=== PATIENT | female | born 1995 | race Hispanic/Latino ===

== ENCOUNTER 2016-08-11 20:03 | Emergency (ER) | payer OTHER ==
[~2016-08-11] VITALS: Ht 154.9 cm; Wt 80.7 kg
[~2016-08-11 20:03] MED LIST: AFRIN30 ML IN; AUGMENTIN 875-1 EACH PO; BACTRIM DS TAB1 EACH PO; CITRATE OF MAG300 ML PO; COLACE100 M1 PO; GOLYTELY SOLU4000 ML PO; IBUPROFEN800 M1 PO; MAGNESIUM CITR296 ML PO; POLYTRIM EYE DR10 ML OPH; TESSALON PERLE100 M1 PO
[2016-08-11 22:32] VITALS: BP 117/53
--- NOTE | 2016-08-11 22:49 | ED SKIN/ALLERGY COMPLAINT ---
History of Present Illness General Chief Complaint: Skin Rash/ Abcess Stated Complaint: RASH Source: patient Exam Limitations: no limitations Allergies Coded Allergies: No Known Allergies (03/17/16) Reconcile Medications Amoxicillin/Potassium Clav (Augmentin 875-125 Tablet) 875 MG-125 MG TABLET 1 TAB PO BID SINUSITIS Benzonatate (Tessalon Perle) 100 MG CAPSULE 1 CAP PO TID PRN COUGH Ibuprofen 800 MG TABLET 1 TAB PO TID PRN BODY ACHES Oxymetazoline HCl (Afrin) 0.05 % SPRAY 1 SPRAY IN TID PRN SINUS CONGESTION MAXIUMUM OF 3 DAYS Sulfamethoxazole/Trimethoprim (Bactrim Ds Tablet) 800 MG-160 MG TABLET 1 TAB PO BID uti Triage Note: PT IS 10 WEKS PT TO ED C/O ITCHY RASH TO UPPER CHEST, GOING UP NECK. STARTED 3 WEEKS AGO. NO NEW FOODS, LOTIONS OR DETERGEANTS. NO PAIN. NO COMPLAINTS R/T Triage Nurses Notes Reviewed? yes : Yes Patient currently breastfeeds: No HPI: This patient is a 21-year-old female who is approximately 10 weeks gestation who presented to the emergency department today for evaluation of rash. The patient reported that she has had this itchy rash for approximately 3 weeks. She reported that it is on the front of her chest and her neck. She denied any sore throat, fevers, chills, difficulty breathing, chest pain, back pain. She denied any leakage of vaginal fluid, vaginal discharge, abdominal pain or cramping, nausea, vomiting, or any other associated symptoms. (PRABHU GIBBS,CELENA) Vital Signs & Intake/Output Vital Signs & Intake/Output Vital Signs Date Time Temp Pulse Resp B/P B/P Pulse O2 O2 Flow FiO2 Mean Ox Delivery Rate 08/12 2303 96 Room Air 08/12 2231 99.0 77 16 117/53 Room Air 08/12 2015 96.8 87 18 109/69 99 Room Air ED Intake and Output 08/12 0000 08/11 1200 Intake Total 180 Output Total Balance 180 Intake, Oral 180 Patient 178 lb Weight Weight Standing Scale Measurement Method Past History Travel History Traveled to [place] past 21 day No Medical History Any Pertinent Medical History? 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 No (CELENA PELLETIER PA-C) Review of Systems Review of Systems Constitutional: Reports: no symptoms. EENTM: Reports: no symptoms. Respiratory: Reports: no symptoms. Cardiovascular: Reports: no symptoms. GI: Reports: no symptoms. Musculoskeletal: Reports: no symptoms. Skin: Reports: see HPI. Neurological/Psychological: Reports: no symptoms. All Other Systems: Reviewed and Negative (CELENA PELLETIER PA-C) Physical Exam Physical Exam General Appearance: well developed/nourished, no apparent distress, alert, awake Comments: Well-developed well-nourished person in no acute distress HEENT: Head normocephalic, moist mucous membranes Neck: Supple, no lymphadenopathy Back: Normal gait Respiratory: No respiratory distress. Speaking in full sentences Abdominal examination: Soft, nontender, and nondistended. No rebound or guarding. No peritoneal signs Extremities: No edema, full range of motion Neuro: Alert and oriented x3 Psych: Mood affect normal, normal memory normal judgment. Skin: Warm and dry. Erythematous, maculopapular, coalescing, urticarial rash to the anterior thorax and anterior aspect of the neck with overlying excoriations. (CELENA PELLETIER PA-C) Progress Differential Diagnosis: abscess/cellulitis, allergic reaction, anaphylaxis, angioedema, contact dermatitis, drug reaction, meningitis/sepsis, shingles, urticaria (CELENA PELLETIER PA-C) Plan of Care: Current Medications Sig/Gosia Start time Last Medication Dose Stop Time Status Admin Diphenhydramine HCl 50 MG ONCE ONE 08/11 2244 CAN (Benadryl) 08/11 2245 Departure Departure Disposition: HOME OR SELF CARE Condition: Stable Clinical Impression Primary Impression: Urticaria Referrals: ANGELITO CHOI MD (PCP/Family) Additional Instructions: Please take [id number] Benadryl for itching and rash. Please follow-up with your APPLICATION DEVELOPER and primary care physician for further evaluation. Return for any worsening symptoms or concerns. Departure Forms: Customer Survey General Discharge Information (CELENA PELLETIER PA-C) PA/FRUIT ROOM HAND Co-Sign Statement Statement: ED Attending supervision documentation- [] I saw and evaluated the patient. I have also reviewed all the pertinent lab results and diagnostic results. I agree with the findings and the plan of care as documented in the PA's/FRUIT ROOM HAND's documentation. [X] I have reviewed the ED Record and agree with the PA's/FRUIT ROOM HAND's documentation. [] Additions or exceptions (if any) to the PAs/FRUIT ROOM HAND's note and plan are summarized below: [] (GREG MIRAMONTES,FRANCESCA Sanchez)
== END 2016-08-11 23:05 ==
LOC: ERH 20:03
DX: O26.91 Pregnancy related conditions, unspecified, first trimester (principal); L50.9 Urticaria, unspecified; Z3A.10 10 weeks gestation of pregnancy